=== PATIENT | male | born 1930 | race Caucasian/White ===

== ENCOUNTER 2016-10-20 10:15 | Observation (INO) | payer MEDICARE, OTHER ==
[~2016-10-20] VITALS: Ht 165.1 cm; Wt 84.4 kg
[~2016-10-20 10:15] MED LIST: ADLT ASA LOW81 MG PO; ALLEGRA-D 1212 HOUR PO; AMOXICILLIN/CL500 MG PO; ASPIRIN325 MG PO; ATENOLOL25 MG PO; AUGMENTIN500TAB PO; BABY ASPIRIN81 MG PO; BACTRIM DS1 TAB PO; CALCIUM +D PO; CARDURA1 MG PO; CEPHALEXIN500 MG OR; CETIRIZ/PSE1 TAB PO; CIPROFLOXACN500 MG PO; COLACE100 MG PO; COMBIVENT RESPIMAT IN; COZAAR50 MG PO; DEMADEX10 MG PO; DEMADEX20 MG PO; FERROUS SULF325 M1 PO; FISH OIL1000 MG PO; FLOMAX0.4 M1 PO; FLUARIX QUADRIV1 IN1 IM; FLUARIX QUADRIV1 INJ IM; FLULAVAL IM; FUROSEMIDE40 MG PO; GELATIN PO; GLYCOLAX3350 N1 PO; K-DUR/KLOR-CON20 MEQ PO; KLOR-CON M2020 MEQ PO; LEVAQUIN500 MG PO; LEVAQUIN750 MG PO; LISINOPRIL10 MG PO; LORTAB 5 OR; LOSARTAN POT50 MG PO; Levaquin PO; MEDDOSEPAK PO; METOPROL TAR25 M1 PO; MIRAPEX0.5 MG PO; MULTIVITAMIN PO; NITRO-DUR0.4 MG/HR TD; NITRO-DUR0.6 MG/HR; OMEPRAZOLE20 MG PO; OXYCO/APAP1 TA5 OR; OXYCO/APAP1 TA5 PO; PANTOPRAZOLE SO40 MG PO; PERCOCET 5/321 COMBO PO; PLAVIX75 MG PO; POT CL MICRO20 MEQ PO; PRILOSEC20 MG PO; PROTONIX40 M2 PO; ROBITUSSIN AC10 ML PO; SIMVASTATIN10 MG PO; SYMBICORT1 AE1 IN; TAM75CAP PO; TERAZOSIN5 MG PO; TESSALON PER100 MG PO; TRICOR145 MG PO; TUSSIONEX PENNKI1 ML OR; TUSSIONEX PENNKI1 ML PO; ZANTAC 150 PO; ZITHROMAX500 MG PO
[2016-10-20 10:45] VITALS: BP 122/67
[2016-10-20 16:45] VITALS: BP 129/71
[2016-10-20 19:48] LABS: URINE BILIRUBIN - DIPSTICK NEGATIVE (NEGATIVE); URINE BLOOD DIPSTICK NEGATIVE (NEGATIVE); URINE CLARITY CLEAR; URINE COLOR YELLOW; URINE GLUCOSE - DIPSTICK NEGATIVE (NEGATIVE); URINE KETONE NEGATIVE (NEGATIVE); URINE LEUK ESTERASE NEGATIVE (Negative); URINE NITRITE - DIPSTICK NEGATIVE (Negative); URINE PH 6.5 (4.5-8.0); URINE PROTEIN - DIPSTICK NEGATIVE (NEG-TRACE); URINE SPECIFIC GRAVITY 1.015; URINE UROBILINOGEN - DIPSTICK 0.2 E.U./dL (0.2)
[2016-10-20 19:49] LABS: HEMATOCRIT 24.6 % (39.0-50.0); HEMOGLOBIN 7.7 g/dl (14.0-18.0); IMMATURE GRANULOCYTES 0.2 % (0.0-1.0); MEAN CELL VOLUME 84.2 fL CALC (80.0-100.0); MEAN CORPUSCULAR HGB 26.4 pG CALC (26.0-32.0); MEAN CORPUSCULAR HGB CONC 31.3 g/L CALC (32.0-36.0); NEUT# 2.1 thou/uL (1.82-7.42); RED BLOOD COUNT 2.92 mill/uL (4.70-6.10); RED CELL DISTRI WIDTH 18.1 % (11.5-15.5)
[2016-10-20 20:14] LABS: ANION GAP 15 (6-22 (CALC)); BUN 19 mg/dL (8-23); BUN/CREATININE RATIO 16 (12-20 (CALC)); CALCIUM 9.4 mg/dL (8.4-10.2); CARBON DIOXIDE 23 mmol/l (22-30); CHLORIDE 109 mmol/l (95-108); CREATININE 1.2 mg/dL (0.7-1.3); GFR 57 ML/MIN (>=60 (CALC)); GFR FOR AFR.AMER. > 60 ML/MIN (>=60 (CALC)); GLUCOSE 137 mg/dL (82-115); SODIUM 143 mmol/l (137-146)
[2016-10-20 21:34] VITALS: BP 162/52
[2016-10-21] VITALS (9 sets, daily range): BP systolic 133–153; BP diastolic 50–71
[2016-10-21 10:04] LABS: HEMATOCRIT 32.7 % (39.0-50.0); HEMOGLOBIN 10.5 g/dl (14.0-18.0); IMMATURE GRANULOCYTES 0.6 % (0.0-1.0); MEAN CELL VOLUME 84.3 fL CALC (80.0-100.0); MEAN CORPUSCULAR HGB 27.1 pG CALC (26.0-32.0); MEAN CORPUSCULAR HGB CONC 32.1 g/L CALC (32.0-36.0); NEUT# 4.75 thou/uL (1.82-7.42); RED BLOOD COUNT 3.88 mill/uL (4.70-6.10); RED CELL DISTRI WIDTH 17.2 % (11.5-15.5)
[2016-10-21 10:42] LABS: ANION GAP 16 (6-22 (CALC)); BUN 18 mg/dL (8-23); BUN/CREATININE RATIO 16 (12-20 (CALC)); CALCIUM 9.1 mg/dL (8.4-10.2); CARBON DIOXIDE 24 mmol/l (22-30); CHLORIDE 108 mmol/l (95-108); CREATININE 1.2 mg/dL (0.7-1.3); GFR 57 ML/MIN (>=60 (CALC)); GFR FOR AFR.AMER. > 60 ML/MIN (>=60 (CALC)); GLUCOSE 150 mg/dL (82-115); POTASSIUM 4.1 mmol/l (3.5-5.1); SODIUM 144 mmol/l (137-146)
== END 2016-10-21 14:25 ==
LOC: ENPENDDIS → MS2 10:15
PROVIDERS: ADMIT Internal Medicine Geriatric Medicine; ATTEND Internal Medicine Geriatric Medicine
PROC: 30233N1 Transfusion of Nonautologous Red Blood Cells into Peripheral Vein, Percutaneous Approach (ICD-10-PCS; principal; 2016-10-21)
PROC: 30233N1 Transfusion of Nonautologous Red Blood Cells into Peripheral Vein, Percutaneous Approach (ICD-10-PCS; 2016-10-21)
DX: D50.9 Iron deficiency anemia, unspecified (principal); I10 Essential (primary) hypertension; E78.5 Hyperlipidemia, unspecified; I25.10 Atherosclerotic heart disease of native coronary artery without angina pectoris; J44.9 Chronic obstructive pulmonary disease, unspecified; Z95.5 Presence of coronary angioplasty implant and graft; Z85.038 Personal history of other malignant neoplasm of large intestine; Z90.49 Acquired absence of other specified parts of digestive tract
CPT/HCPCS: P9016

== ENCOUNTER 2016-12-03 11:39 | Inpatient (IN) | payer MEDICARE, OTHER ==
[~2016-12-03] VITALS: Ht 165.1 cm; Wt 83.4 kg
--- NOTE | 2016-12-03 11:51 | NUR ---
PT AMBLATORY TO ROOM FOR EXAM
--- NOTE | 2016-12-03 12:31 | NUR ---
INITIATED IV FLUIDS AND MED FOR NAUSEA, PT ABD SOFT AND NON DISTENDED. STATES NAUSEA STARTED THIS AM. VSS. AT BEDSIDE. SKIN PWD
--- NOTE | 2016-12-03 12:35 | NUR ---
AWAKENED PT FOR NOON MEAL. PT SITTING UP AT BEDSIDE, ALERT AND RESPONSIVE
[2016-12-03 12:36] LABS: HEMATOCRIT 34.1 % (39.0-50.0); HEMOGLOBIN 10.5 g/dl (14.0-18.0); IMMATURE GRANULOCYTES 0.2 % (0.0-1.0); MEAN CELL VOLUME 85.5 fL CALC (80.0-100.0); MEAN CORPUSCULAR HGB 26.3 pG CALC (26.0-32.0); MEAN CORPUSCULAR HGB CONC 30.8 g/L CALC (32.0-36.0); NEUT# 7.02 thou/uL (1.82-7.42); RED BLOOD COUNT 3.99 mill/uL (4.70-6.10); RED CELL DISTRI WIDTH 14.8 % (11.5-15.5)
[2016-12-03 12:37] LABS: URINE BILIRUBIN - DIPSTICK NEGATIVE (NEGATIVE); URINE BLOOD DIPSTICK NEGATIVE (NEGATIVE); URINE CLARITY CLEAR; URINE COLOR YELLOW; URINE GLUCOSE - DIPSTICK NEGATIVE (NEGATIVE); URINE KETONE NEGATIVE (NEGATIVE); URINE LEUK ESTERASE NEGATIVE (NEGATIVE); URINE NITRITE - DIPSTICK NEGATIVE (Negative); URINE PROTEIN - DIPSTICK NEGATIVE (NEG-TRACE); URINE UROBILINOGEN - DIPSTICK 0.2 E.U./dL (0.2)
[2016-12-03 12:52] LABS: ALBUMIN 4.4 g/dL (3.2-5.0); BILIRUBIN, TOTAL 0.5 mg/dL (0.0-1.4); CALCIUM 10.5 mg/dL (8.4-10.2); CREATININE 1.6 mg/dL (0.7-1.3); POTASSIUM 4.3 mmol/l (3.5-5.1); TOTAL PROTEIN 7.7 g/dL (6.3-8.2)
--- NOTE | 2016-12-03 13:30 | NUR ---
PT RESTING WITHOUT COMPLAINT AT THIS TIME. ASSISTED PT WITH REPOSITIONING. AT BEDSIDE. AWAITING DISPOSITION
--- NOTE | 2016-12-03 14:48 | NUR ---
DR MENDOZA AT BEDSIDE TO DISCUSS CLINICAL FINDINGS AND ADMISSION WITH PT AND FAMILY. AGREEABLE TO ADMISSION.
--- NOTE | 2016-12-03 15:20 | NUR ---
PT IN NO ACUTE DISTRESS. VSS. AWARE OF ADMIT AND AGREEABLE
--- NOTE | 2016-12-03 15:31 | NUR ---
ATTEMPTED TO CALL REPORT TO SOPHIA SMITH MS2, NURSE IN PT ROOM
--- NOTE | 2016-12-03 15:52 | NUR ---
CALLED REPORT TO LUIS RODRIGUEZ RN.PT TRANSPORTED TO [facility] VIA STRETCHER.
--- NOTE | 2016-12-03 16:01 | NUR ---
PT ARRIVED TO FLOOR VIA STRETCHER ACCOMPANIED BY SOPHIA STOLL. PRESENT. PT ASSISTED TO BED WITH STAFF X 1. GENERALIZED WEAKNESS NOTED. PT ORIENTED TO ROOM ADN EQUIPMENT. PLAN OF CARE DISCUSSED. REPORTING OF CONCERNS ENCOURAGED. CALL LIGHT REVIEWED AND IN REACH. PT STATES UNDERSTANDING.
[2016-12-03 17:00] VITALS: BP 183/82
--- NOTE | 2016-12-03 17:05 | NUR ---
1 BAG OF SSE ADMINISTERED. PT SITTING ON BSC NOW. AT BEDSIDE.
[2016-12-03 17:15] VITALS: BP 171/70
--- NOTE | 2016-12-03 17:55 | NUR ---
2ND SSE ADMINISTERED. PT TO BSC. LARGE BROWN/WATERY WITH SOLID FRAGMENTS STOOL OBSERVED. PT REQUESTSTO EAT DINNER BEFORE PROCEEDING WITH ENEMAS.
--- NOTE | 2016-12-03 17:56 | NUR ---
BP 183/83. DR. SILVA NOTIFIED. ORDER FOR CLONIDINE PO GIVEN AND ADMINISTERED. WILL CONTINUE TO MONITOR.
[2016-12-03 18:45] VITALS: BP 170/75
--- NOTE | 2016-12-03 18:58 | NUR ---
DR. SILVA IN TO SEE PT. NEW ORDERS BEING PLACED NOW. PT UPDATED ON NEW PLAN OF CARE. PT STATES UNDERSTANDING.
--- NOTE | 2016-12-03 19:05 | NUR ---
REPORT RECEIVED FROM MELA SMITH; PT.UPRIGHT W/OUT S/S OF DISTRESS, DENIES ANY DISCOMFORT AT THIS TIME; CALL LIGHT W/IN REACH
--- NOTE | 2016-12-03 20:16 | NUR ---
NG TUBE PLACED BY ASHLYN,DRYER AND WASHER MECHANIC ORDERED BY ; PT.TOLERATED PROCEDURE WELL AND SUCTION SET AT LIS; 800CC OUT IMMEDIATELY; PLACEMENT CONFIRMED; WILL SEND PT.DOWN FOR XRAY ORDERED FOR PLACEMENT CONFIRMATION;
[2016-12-04 00:59] VITALS: BP 103/57
[2016-12-04 04:08] VITALS: BP 127/57
--- NOTE | 2016-12-04 05:00 | NUR ---
PT.NGTUBE DRAINING LIGHT COLÓN W/SLIGHT GREEN TINGE FLUID W/SEDIMENT; 750CC EMPTIED FROM CANISTER AND NEW CANISTER PLACED; 200 CC EMPTIED FROM URINAL OF CLEAR YELLOW URINE; CALL LIGHT W/IN REACH AND PT.ENCOURAGED TO CALL; PROVIDED ICE CHIPS FOR PT.TO RELEIVE THROAT IRRITATION
[2016-12-04 05:14] LABS: HEMATOCRIT 29.1 % (39.0-50.0); HEMOGLOBIN 9.4 g/dl (14.0-18.0); IMMATURE GRANULOCYTES 0.3 % (0.0-1.0); MEAN CELL VOLUME 83.1 fL CALC (80.0-100.0); MEAN CORPUSCULAR HGB 26.9 pG CALC (26.0-32.0); MEAN CORPUSCULAR HGB CONC 32.3 g/L CALC (32.0-36.0); NEUT# 6.62 thou/uL (1.82-7.42); RED BLOOD COUNT 3.5 mill/uL (4.70-6.10); RED CELL DISTRI WIDTH 14.6 % (11.5-15.5)
[2016-12-04 05:30] LABS: ALBUMIN 3.6 g/dL (3.2-5.0); BILIRUBIN, TOTAL 0.5 mg/dL (0.0-1.4); CALCIUM 9.5 mg/dL (8.4-10.2); CREATININE 1.4 mg/dL (0.7-1.3); POTASSIUM 3.4 mmol/l (3.5-5.1); TOTAL PROTEIN 6.4 g/dL (6.3-8.2)
--- NOTE | 2016-12-04 08:00 | NUR ---
DR. SILVA IN TO SEE PT; PLAN OF CARE DISCUSSED
[2016-12-04 08:18] VITALS: BP 105/69
--- NOTE | 2016-12-04 11:27 | NUR ---
DR. WILD NOTIFIED OF CONSULT
--- NOTE | 2016-12-04 13:38 | NUR ---
NG TO LIS; PT DENIES PAIN; PT INQUIRED ABOUT NPO STATUS; INFORMED PT THAT SURGEON WILL BE IN THIS EVENING AND WILL DISCUSS POC; REINFORCE TO PT THAT WHILE NGT IS IN PLACE, NO FOOD OR DRINK AT THIS TIME; PT VERBALIZE UNDERSTANDING OF SAME; CALL CONTE WITHIN REACH; WILL CONTINUE TO MONITOR.
--- NOTE | 2016-12-04 14:30 | NUR ---
DR. WILD IN TO SEE PT
[2016-12-04 15:50] VITALS: BP 110/60
--- NOTE | 2016-12-04 17:39 | NUR ---
DR. SILVA IN TO SEE PT
[2016-12-04 19:07] VITALS: BP 125/64
--- NOTE | 2016-12-04 20:00 | NUR ---
PATIENT RESTING IN BED AT THIS TIME-AWAKE ALERT AND ORIENTEDX3. NGT TO LIWS DRAINING BROWN FLUID. IV SITE TO LEFT WRIST WITH IVF D51/2NS PATENT AND INFUSING AT 100CC/HR. NPO AT THIS TIME. PATIENT DENIES ANY PAIN AT THIS TIME. SAFETY PRECAUTIONS REINFORCED. CALL LIGHT IN REACH. WILL CONT TO MONITOR.
--- NOTE | 2016-12-05 | NUR ---
PATIENT RESTING INBED AT THIS TIME. PATIENT WITH NO COMPLAINTS AT THIS TIME. NGT TO LIWS CONT TO DRAIN BROWN FLUID. #16 ARMENIAN LARIOS CATH INSERTED ORDERED WITHOUT ANY DIFFICULTY AND DRAINING CLEAR YELLOW URINE. PATIENT LYNNE WELL. SAFETY PRECAUTIONS REINFORCED. CALL LIGHT IN REACH. WILL CONT TO MONITOR.
[2016-12-05 03:00] VITALS: BP 137/69
--- NOTE | 2016-12-05 04:12 | NUR ---
PATIENT RESTING IN BED AT THIS TIME-APPEARS SLEEPING WITH NGT TO LIWS-CONT TO DRAIN BROWN FLUID. LARIOS PATENT AND DRAINING YELLOW URINE. CALL LIGHT IN REACH. WILL CONT TO MONITOR.
--- NOTE | 2016-12-05 06:12 | NUR ---
PATIENT UP TO BSC-PASSING FLATUS BUT NO STOOL. SITTING UP ON THE SIDE OF THE BED. CALL LIGHT IN REACH. WILL CONT TO MONITOR.
[2016-12-05 06:13] LABS: HEMATOCRIT 34.6 % (39.0-50.0); HEMOGLOBIN 10.8 g/dl (14.0-18.0); IMMATURE GRANULOCYTES 0.4 % (0.0-1.0); MEAN CORPUSCULAR HGB 26.2 pG CALC (26.0-32.0); MEAN CORPUSCULAR HGB CONC 31.2 g/L CALC (32.0-36.0); NEUT# 8.14 thou/uL (1.82-7.42); RED BLOOD COUNT 4.12 mill/uL (4.70-6.10); RED CELL DISTRI WIDTH 14.8 % (11.5-15.5)
[2016-12-05 06:38] LABS: ALBUMIN 4.2 g/dL (3.2-5.0); BILIRUBIN, TOTAL 0.6 mg/dL (0.0-1.4); CALCIUM 10.1 mg/dL (8.4-10.2); CREATININE 1.4 mg/dL (0.7-1.3); POTASSIUM 3.2 mmol/l (3.5-5.1); TOTAL PROTEIN 7.5 g/dL (6.3-8.2)
--- NOTE | 2016-12-05 07:33 | NUR ---
PATIENT RESTING IN BED WITH NO COMPLAINTS AT THIS TIME. NGT CONT WITH BROWN DRAINAGE. LARIOS CATH INSERTED ORDERED WITHOUT ANY DIFFICULTY-#16FREANCH WITH CLEAR YELLOW URINE RETURNED. CALL LIGHT IN REACH. PATIENT DENIES ANY PAIN AT THIS TIME. WILL CONT TO MONITOR.
--- NOTE | 2016-12-05 08:18 | NUR ---
REPORT RECEIVED FROM MELA; PT.AWAKE W/FAMILY AT BS; PT.DENIES NEEDS AT THIS TIME; PT.MENTIONED A CONCERN ABOUT DYE TESTING THAT IS PLANNED FOR TODAY, STATING THAT HIS KIDNEY TOLD HIM TO "STAY AWAY FROM" DYE'S FOR TESTING DUE TO HIS STENT; CALL LIGHT W/IN REACH
--- NOTE | 2016-12-05 08:30 | NUR ---
IN TO SEE PT., PT.DISCUSSED CONTRAST DYE CONCERNS W/ AND THEY CONFIRMED SMALL BOWEL SERIES TO BE PERFORMED TODAY;
--- NOTE | 2016-12-05 10:43 | NUR ---
NEW NG TUBE CANISTER TO REPLACE OLD CANISTER; 375 CC NEW OUTPUT OF DARK GREEN LIQUID RECORDED
--- NOTE | 2016-12-05 15:35 | NUR ---
SPOKE W/ REGARDING NGTUBE REMOVAL, HE WANTS ME TO LEAVE THE TUBE IN PLACE UNTIL AND CALL HIM W/RESULTS OF ABD.XRAY SERIES FIRST WHEN THEY COME IN;
--- NOTE | 2016-12-05 16:45 | NUR ---
CALLED W/XRAY RESULTS SHOWING NO SB BLOCKAGE; SAID TO DC NGTUBE BECAUSE PT.HAS BEEN CLAMPED FOR SEVERAL HOURS NOT WHILE HAVING PROOCEDURE TO START PT.ON FULL LIQUIDS FIRST, TOLERATED SNACK OVERNIGHT AND FULL BREAKFAST W/POSSIBLE DC IN AM
[2016-12-05 17:00] VITALS: BP 131/72
--- NOTE | 2016-12-05 17:45 | NUR ---
XRAY SMALL BOWEL SERIES IS NEGATIVE, PT.IS IN RESTROOM 5X LOOSE BOWEL MOVEMENTS; IS IN PT.ROOM AND ORDERED: DC NGTUBE, DC LARIOS CATHETER, INTRODUCTION OF FULL LIQUID DIET, SNACK OVERNIGHT IF TOLERATING AND BREAKFAST IN THE AM W/PROBABLE DC IN AM; NG TUBE WAS REMOVED AND LARIOS REMOVED, PT.TOLERATED BOTH WELL;
--- NOTE | 2016-12-05 20:00 | NUR ---
PATIENT RESTING IN BED AND APPEARS SLEEPING AT THIS TIME WITH EYES CLOSED. CALL LIGHT IN REACH. WILL CONT TO MONITOR.
[2016-12-05 20:15] VITALS: BP 118/67
--- NOTE | 2016-12-05 22:00 | NUR ---
IV SITE TO LEFT WRIST IS LEAKING AND WAS D/C. NEW IV SITE STARTED TO LEFT FOREARM-#22 GAUGE BY JYOTI HARDING. IVF D51/2NS PATENT AND INFUSING AT 100CC/HR. PATIENT IS HAVING LIQUID YELLOW STOOLS. RESTING IN BED AT THIS TIME. WILL CONT TO MONITOR.
--- NOTE | 2016-12-06 | NUR ---
PATIENT APPEARS SLEEPING AT THIS TIME WITH EYES CLOSED. CALL LIGHT IN REACH. WILL CONT TO MONITOR.
--- NOTE | 2016-12-06 04:10 | NUR ---
PATIENT CONT TO SLEEP WITH EYES CLOSED. IVF PATENT AT 100CC/HR VIA LEFT FOREARM SITE. CALL LIGHT IN REACH. WILL CONT TO MONITOR.
[2016-12-06 04:50] VITALS: BP 112/51
[2016-12-06 05:08] LABS: HEMATOCRIT 32.8 % (39.0-50.0); HEMOGLOBIN 10.2 g/dl (14.0-18.0); IMMATURE GRANULOCYTES 0.5 % (0.0-1.0); MEAN CORPUSCULAR HGB 26.4 pG CALC (26.0-32.0); MEAN CORPUSCULAR HGB CONC 31.1 g/L CALC (32.0-36.0); NEUT# 8.63 thou/uL (1.82-7.42); RED BLOOD COUNT 3.86 mill/uL (4.70-6.10); RED CELL DISTRI WIDTH 15.1 % (11.5-15.5)
[2016-12-06 05:35] LABS: ALBUMIN 3.9 g/dL (3.2-5.0); BILIRUBIN, TOTAL 0.6 mg/dL (0.0-1.4); CALCIUM 9.7 mg/dL (8.4-10.2); CREATININE 2.3 mg/dL (0.7-1.3); POTASSIUM 2.7 mmol/l (3.5-5.1); TOTAL PROTEIN 7.1 g/dL (6.3-8.2)
--- NOTE | 2016-12-06 07:40 | NUR ---
BEDSIDE REPORT RECEIVED FROM SOPHIA ECHOLS. PT SITTING UPRIGHT IN BED. DENIES PAIN. REPORTING OF CONCERNS ENCOURAGED. PLAN OF CARE DISCUSSED. CALL LIGHT REVIEWED AND IN REACH. PT STATES UNDERSTANDING.
[2016-12-06 09:00] VITALS: BP 117/67
--- NOTE | 2016-12-06 13:00 | NUR ---
PT SITTING IN CHAIR AT BEDSIDE. PRESENT. DENIES PAIN. TOLERATING FULL LIQUID DIET. WILL CONTINUE TO MONITOR.
[2016-12-06 17:59] LABS: CALCIUM 8.3 mg/dL (8.4-10.2); CREATININE 2.1 mg/dL (0.7-1.3); POTASSIUM 3.3 mmol/l (3.5-5.1)
--- NOTE | 2016-12-06 18:11 | NUR ---
DR. SILVA IN TO SEE PT. PLAN OF CARE UPDATED.
--- NOTE | 2016-12-06 20:00 | NUR ---
OOB TO BATHROOM WITH STEADY GAIT, NEEDS ASSISTANCE WITH IV POLE. VOIDING CLEAR YELLOW URINE, NO BM AT THIS TIME. DENIES PAIN OR DISCOMFORT. ENCOURAGED TO USE CALL LIGHT FOR ASSISTANCE, WILL CONTINUE TO MONITOR.
[2016-12-06 20:15] VITALS: BP 94/51
--- NOTE | 2016-12-07 | NUR ---
RESTING IN BED WITH EYES CLOSED, RESPIRATIONS EVEN AND UNLABORED. CALL LIGHT IN REACH.
--- NOTE | 2016-12-07 00:44 | NUR ---
PT IN SEMIFOWLERS A/O X3, RESPIRATIONS EVEN AND UNLABORED ON RA. CALL LIGHT IN REACH.
[2016-12-07 03:59] VITALS: BP 109/65
[2016-12-07 05:58] LABS: HEMATOCRIT 29.4 % (39.0-50.0); HEMOGLOBIN 9.4 g/dl (14.0-18.0); IMMATURE GRANULOCYTES 0.4 % (0.0-1.0); MEAN CELL VOLUME 82.6 fL CALC (80.0-100.0); MEAN CORPUSCULAR HGB 26.4 pG CALC (26.0-32.0); NEUT# 6.51 thou/uL (1.82-7.42); RED BLOOD COUNT 3.56 mill/uL (4.70-6.10); RED CELL DISTRI WIDTH 14.3 % (11.5-15.5)
[2016-12-07 06:16] LABS: ALBUMIN 3.4 g/dL (3.2-5.0); BILIRUBIN, TOTAL 0.5 mg/dL (0.0-1.4); CALCIUM 8.6 mg/dL (8.4-10.2); CREATININE 1.6 mg/dL (0.7-1.3); POTASSIUM 3.2 mmol/l (3.5-5.1); TOTAL PROTEIN 6.1 g/dL (6.3-8.2)
[2016-12-07 07:43] VITALS: BP 113/60
[2016-12-07 09:13] VITALS: BP 113/60
--- NOTE | 2016-12-07 10:50 | NUR ---
Discharge instructions given. Patient verbalizes understanding of same. Discharged in stable condition via Wheelchair to Home with spouse. All belongings sent with pt.
== END 2016-12-07 10:51 | disposition home or self-care (01) | DRG 389 ==
LOC: ENPENDDIS → ED 11:39 → ED-I 14:39 → ED 15:13 → MS2 15:14
PROVIDERS: Emergency Medicine; ADMIT Internal Medicine Geriatric Medicine; ATTEND Internal Medicine Geriatric Medicine
PROC: 0D9670Z Drainage of Stomach with Drainage Device, Via Natural or Artificial Opening (ICD-10-PCS; principal; 2016-12-03)
PROC: 0T9B70Z Drainage of Bladder with Drainage Device, Via Natural or Artificial Opening (ICD-10-PCS; 2016-12-05)
DX: K56.60 Unspecified intestinal obstruction (principal); N17.9 Acute kidney failure, unspecified; I95.9 Hypotension, unspecified; E86.9 Volume depletion, unspecified; I70.1 Atherosclerosis of renal artery; N18.3 Chronic kidney disease, stage 3 (moderate); R00.1 Bradycardia, unspecified; I12.9 Hypertensive chronic kidney disease with stage 1 through stage 4 chronic kidney disease, or unspecified chronic kidney disease; D63.1 Anemia in chronic kidney disease; I25.10 Atherosclerotic heart disease of native coronary artery without angina pectoris; Z85.038 Personal history of other malignant neoplasm of large intestine; Z87.891 Personal history of nicotine dependence; Z90.49 Acquired absence of other specified parts of digestive tract; Z95.5 Presence of coronary angioplasty implant and graft
CPT/HCPCS: G0378; Q9967

== ENCOUNTER 2016-12-21 12:44 | Inpatient (IN) | payer MEDICARE, OTHER ==
[~2016-12-21] VITALS: Ht 165.1 cm; Wt 79.8 kg
[2016-12-21 13:45] LABS: HEMATOCRIT 29.1 % (39.0-50.0); IMMATURE GRANULOCYTES 0.3 % (0.0-1.0); MEAN CELL VOLUME 81.3 fL CALC (80.0-100.0); MEAN CORPUSCULAR HGB 25.1 pG CALC (26.0-32.0); MEAN CORPUSCULAR HGB CONC 30.9 g/L CALC (32.0-36.0); NEUT# 5.7 thou/uL (1.82-7.42); RED BLOOD COUNT 3.58 mill/uL (4.70-6.10); RED CELL DISTRI WIDTH 14.6 % (11.5-15.5)
[2016-12-21 13:58] LABS: ALBUMIN 3.8 g/dL (3.2-5.0); ALKALINE PHOSPHATASE 45 u/l (38-126); AMYLASE 36 u/l (30-110); ANION GAP 13 (6-22 (CALC)); BILIRUBIN, TOTAL 0.5 mg/dL (0.0-1.4); BUN 16 mg/dL (8-23); BUN/CREATININE RATIO 13 (12-20 (CALC)); CALCIUM 10.3 mg/dL (8.4-10.2); CARBON DIOXIDE 26 mmol/l (22-30); CHLORIDE 106 mmol/l (95-108); CREATININE 1.3 mg/dL (0.7-1.3); GFR 52 ML/MIN (>=60 (CALC)); GFR FOR AFR.AMER. > 60 ML/MIN (>=60 (CALC)); GLUCOSE 114 mg/dL (82-115); LIPASE 49 u/l (23-300); SGOT/AST 20 u/l (19-48); SGPT/ALT 26 u/l (11-66); SODIUM 141 mmol/l (137-146); TOTAL PROTEIN 6.6 g/dL (6.3-8.2)
[2016-12-21 18:15] VITALS: BP 136/57
[2016-12-22 04:30] VITALS: BP 137/63
[2016-12-22 05:12] LABS: URINE BILIRUBIN - DIPSTICK NEGATIVE (NEGATIVE); URINE BLOOD DIPSTICK NEGATIVE (NEGATIVE); URINE CLARITY CLEAR; URINE COLOR YELLOW; URINE GLUCOSE - DIPSTICK NEGATIVE (NEGATIVE); URINE KETONE NEGATIVE (NEGATIVE); URINE LEUK ESTERASE NEGATIVE (NEGATIVE); URINE NITRITE - DIPSTICK NEGATIVE (Negative); URINE PROTEIN - DIPSTICK NEGATIVE (NEG-TRACE); URINE UROBILINOGEN - DIPSTICK 0.2 E.U./dL (0.2)
[2016-12-22 05:13] LABS: HEMATOCRIT 26.7 % (39.0-50.0); HEMOGLOBIN 8.2 g/dl (14.0-18.0); IMMATURE GRANULOCYTES 0.4 % (0.0-1.0); MEAN CELL VOLUME 81.9 fL CALC (80.0-100.0); MEAN CORPUSCULAR HGB 25.2 pG CALC (26.0-32.0); MEAN CORPUSCULAR HGB CONC 30.7 g/L CALC (32.0-36.0); NEUT# 3.53 thou/uL (1.82-7.42); RED BLOOD COUNT 3.26 mill/uL (4.70-6.10); RED CELL DISTRI WIDTH 14.4 % (11.5-15.5)
[2016-12-22 05:38] LABS: ANION GAP 12 (6-22 (CALC)); BUN 17 mg/dL (8-23); BUN/CREATININE RATIO 14 (12-20 (CALC)); CARBON DIOXIDE 23 mmol/l (22-30); CHLORIDE 110 mmol/l (95-108); CREATININE 1.2 mg/dL (0.7-1.3); GFR 57 ML/MIN (>=60 (CALC)); GFR FOR AFR.AMER. > 60 ML/MIN (>=60 (CALC)); GLUCOSE 75 mg/dL (82-115); POTASSIUM 3.6 mmol/l (3.5-5.1); SODIUM 142 mmol/l (137-146)
[2016-12-22 08:03] VITALS: BP 155/63
[2016-12-22 08:57] VITALS: BP 141/50
[2016-12-22] MEDS ORDERED: GLYCOLAX3350 N1 PO (16:23)
[2016-12-22] MEDS ORDERED: COLACE100 MG PO (16:23)
[2016-12-22 16:29] VITALS: BP 141/74
== END 2016-12-22 17:00 | disposition home or self-care (01) | DRG 390 ==
LOC: ENPENDDIS → ED 12:44 → ED-I 15:13 → ED 16:46 → MS2 16:47
PROVIDERS: Emergency Medicine; ADMIT Internal Medicine; ATTEND Internal Medicine
PROC: 0D9670Z Drainage of Stomach with Drainage Device, Via Natural or Artificial Opening (ICD-10-PCS; principal; 2016-12-21)
DX: K56.60 Unspecified intestinal obstruction (principal); I70.1 Atherosclerosis of renal artery; I10 Essential (primary) hypertension; I25.10 Atherosclerotic heart disease of native coronary artery without angina pectoris; D50.9 Iron deficiency anemia, unspecified; K59.09 Other constipation; Z87.891 Personal history of nicotine dependence; Z95.5 Presence of coronary angioplasty implant and graft; Z85.038 Personal history of other malignant neoplasm of large intestine; Z90.49 Acquired absence of other specified parts of digestive tract

== ENCOUNTER 2017-02-22 08:17 | Emergency (ER) | payer MEDICARE, OTHER ==
[~2017-02-22] VITALS: Ht 165.1 cm; Wt 70.0 kg
[2017-02-22] MEDS ORDERED: CALCIUM + D PO (08:23)
[2017-02-22 09:33] VITALS: BP 158/70
== END 2017-02-22 09:50 | disposition home or self-care (01) ==
LOC: ED 08:17
PROC: 0HQ1XZZ Repair Face Skin, External Approach (ICD-10-PCS; principal; 2017-02-22)
DX: S09.90XA Unspecified injury of head, initial encounter (principal); S01.81XA Laceration without foreign body of other part of head, initial encounter; S61.412A Laceration without foreign body of left hand, initial encounter; W01.198A Fall on same level from slipping, tripping and stumbling with subsequent striking against other object, initial encounter; Y92.007 Garden or yard of unspecified non-institutional (private) residence as the place of occurrence of the external cause

== ENCOUNTER 2018-03-28 10:49 | Emergency (ER) | payer MEDICARE, OTHER ==
[~2018-03-28] VITALS: Ht 165.1 cm; Wt 65.4 kg
[~2018-03-28 10:49] MED LIST changes: +CALCIUM + D PO
[2018-03-28] MEDS ORDERED: XELODA500 MG PO (11:17)
[2018-03-28] MEDS ORDERED: AVASTIN100 MG/4 M PO (11:19)
[2018-03-28 11:24] LABS: HEMATOCRIT 40.9 % (39.0-50.0); HEMOGLOBIN 14.3 g/dl (14.0-18.0); IMMATURE GRANULOCYTES 0.3 % (0.0-5.0); MEAN CELL VOLUME 98.3 fL CALC (80.0-100.0); MEAN CORPUSCULAR HGB 34.4 pG CALC (26.0-32.0); NEUT# 4.54 thou/uL (1.82-7.42); RED BLOOD COUNT 4.16 mill/uL (4.70-6.10); RED CELL DISTRI WIDTH 17.6 % (11.5-15.5)
[2018-03-28 11:33] LABS: ALBUMIN 4.5 g/dL (3.2-5.0); ALKALINE PHOSPHATASE 53 u/l (38-126); BILIRUBIN, TOTAL 0.9 mg/dL (0.0-1.4); BUN 23 mg/dL (8-23); BUN/CREATININE RATIO 23 (12-20 (CALC)); CARBON DIOXIDE 20 mmol/l (22-30); CHLORIDE 107 mmol/l (95-108); GFR > 60 ML/MIN (>=60 (CALC)); GFR FOR AFR.AMER. > 60 ML/MIN (>=60 (CALC)); SGPT/ALT 29 u/l (11-66); SODIUM 140 mmol/l (137-146); TOTAL PROTEIN 7.7 g/dL (6.3-8.2)
[2018-03-28 11:35] LABS: ANION GAP 17 (6-22 (CALC)); SGOT/AST 68 u/l (19-48)
[2018-03-28 11:44] LABS: MYOGLOBIN 200 ng/mL (0 - 121)
[2018-03-28 12:14] LABS: CPK 214 u/l (52-200)
[2018-03-28 13:41] VITALS: BP 157/84
== END 2018-03-28 13:41 | disposition short-term general hospital (02) ==
LOC: ED 10:49
PROVIDERS: Emergency Medicine
DX: R07.9 Chest pain, unspecified (principal); R74.8 Abnormal levels of other serum enzymes; I10 Essential (primary) hypertension; I25.10 Atherosclerotic heart disease of native coronary artery without angina pectoris; Z85.038 Personal history of other malignant neoplasm of large intestine; Z86.79 Personal history of other diseases of the circulatory system; Z95.5 Presence of coronary angioplasty implant and graft

== ENCOUNTER 2018-09-10 08:27 | Observation (INO) | payer MEDICARE, OTHER ==
[~2018-09-10] VITALS: Ht 165.1 cm; Wt 65.3 kg
[~2018-09-10 08:27] MED LIST changes: +AVASTIN100 MG/4 M PO; +XELODA500 MG PO
--- NOTE | 2018-09-10 08:27 | NUR ---
PT TO ROOM FOR BEDSIDE TRIAGE VIA WC. 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 ARM DRESSED BY
--- NOTE | 2018-09-10 08:40 | NUR ---
MD AT BEDSIDE AND SKIN SHEARING TO RT UPPER ARM 10X4CM . CLEANSED AND DRESSED ORDERED. NO ACTIVE BLEEDING.
[2018-09-10 09:25] LABS: HEMATOCRIT 47.6 % (39.0-50.0); HEMOGLOBIN 15.6 g/dl (14.0-18.0); IMMATURE GRANULOCYTES 0.3 % (0.0-5.0); MEAN CELL VOLUME 92.6 fL CALC (80.0-100.0); MEAN CORPUSCULAR HGB 30.4 pG CALC (26.0-32.0); MEAN CORPUSCULAR HGB CONC 32.8 g/L CALC (32.0-36.0); NEUT# 4.51 thou/uL (1.82-7.42); RED BLOOD COUNT 5.14 mill/uL (4.70-6.10); RED CELL DISTRI WIDTH 18.3 % (11.5-15.5)
--- NOTE | 2018-09-10 09:35 | NUR ---
PT STATES HE FEELS DIZZY WHEN HE MOVES HIS HEAD FROM SIDE TO SIDE. VSS. DENIES NAUSEA OR VISUAL DISTURBANCE
[2018-09-10] MEDS ORDERED: XELODA500 MG PO (09:39)
[2018-09-10] MEDS ORDERED: STOOL SOFTENER100 MG PO (09:40)
[2018-09-10] MEDS ORDERED: MIRALAX3350 N1 PO (09:41)
[2018-09-10 09:49] LABS: ANION GAP 13 (6-22 (CALC)); BUN 18 mg/dL (8-23); BUN/CREATININE RATIO 23 (12-20 (CALC)); CARBON DIOXIDE 27 mmol/l (22-30); CHLORIDE 106 mmol/l (95-108); CREATININE 0.8 mg/dL (0.7-1.3); GFR > 60 ML/MIN (>=60 (CALC)); GFR FOR AFR.AMER. > 60 ML/MIN (>=60 (CALC)); POTASSIUM 4.3 mmol/l (3.5-5.1); SODIUM 142 mmol/l (137-146)
--- NOTE | 2018-09-10 10:24 | NUR ---
PT RESTING COMFORTABLY AT THIS TIME. VSUmm. DISCUSSING ADMIT WITH PT AND .
--- NOTE | 2018-09-10 10:45 | NUR ---
CALLED REPORT TO SOPHIA SMITH
--- NOTE | 2018-09-10 10:47 | NUR ---
CALLED DR SILVA FOR ADMISSION ORDERS
--- NOTE | 2018-09-10 11:05 | NUR ---
PT TRANSPORTED TO ID VIA STRETCHER ON CONTINUOUS PROFESSOR OF BUSINESS ADMINISTRATION IN STABLE CONDITION
--- NOTE | 2018-09-10 11:24 | NUR ---
PT ARRIVED TO FLOOR VIA STRETCHER ACCOMPANIED BY SOPHIA STOLL. PT TRANSFERED TO BED WITH ASSISTANCE. REPORTS DIZZINESS WITH ANY POSITION CHANGE AND/OR TURNING OF HEAD. FALL PRECAUTIONS REINFORCED. CALL LIGHT REVIEWED AND IN REACH. PT INSTRUCTED TO CALL FOR ASSIST BEFORE EXITING BED. PT ORIENTED TO ROOM AND EQUIPMENT. PLAN OF CARE DISCUSSED. PT STATES UNDERSTANDING. DRSG TO RIGHT UPPER ARM SKIN TEAR APPLIED IN ED CDI.
[2018-09-10 11:41] VITALS: BP 154/83
[2018-09-10 15:29] VITALS: BP 117/67
--- NOTE | 2018-09-10 17:54 | NUR ---
DR. SILVA IN TO SEE PT. PLAN OF CARE UPDATED.
--- NOTE | 2018-09-10 19:05 | NUR ---
BEDSIDE REPORT RECEIVED. PT STITTING UP IN BED WITH AT BEDSIDE; ALERT AND ORIENTED. DENIES PAIN. RESPIRATIONS EVEN AND UNLABORED. REPORTS DIZZINESS UPON POSITION CHANGES AND TURNING HEAD. PLAN OF CARE REVIEWED. PT ENCOURAGED TO VERBALIZE CONCERNS. STATES UNDERSTANDING. SAFETY MEASURES IN PLACE. CALL LIGHT WITHIN REACH.
[2018-09-10 19:30] VITALS: BP 112/65
--- NOTE | 2018-09-10 23:48 | NUR ---
TELE MONITOR NOTIFED NURSE OF 2 SUSTAINED RUNS OF VTACH OF 7-10 BEATS; PT ASYMPTOMATIC FOR BOTH EPISODES. CURRENTLY RESTING IN BED WITH EYES CLOSED AND NO SIGNS OF DISTRESS. RESPIRATIONS EVEN AND UNLABORED ON ROOM AIR. IV FLUIDS INFUSING WITHOUT DIFFICULTY AND IV SITE APPEARS HEALTHY. PT AMBULATED TO BATHROOM WITH STEADY GAIT; STAND BY ASSIST R/T SYNCOPE DX. SAFETY MEASURES IN PLACE. CALL LIGHT WITHIN REACH.
[2018-09-11 00:28] VITALS: BP 123/69
[2018-09-11 03:35] VITALS: BP 134/79
--- NOTE | 2018-09-11 04:56 | NUR ---
PT AWAKENS SPONTANEOUSLY FOR LABS AND VS. NO ACUTE CHANGES IN CONDITION THROUGHOUT THE NIGHT.
[2018-09-11 06:13] LABS: IMMATURE GRANULOCYTES 0.3 % (0.0-5.0); MEAN CORPUSCULAR HGB 30.5 pG CALC (26.0-32.0); MEAN CORPUSCULAR HGB CONC 32.8 g/L CALC (32.0-36.0); NEUT# 3.99 thou/uL (1.82-7.42); RED BLOOD COUNT 4.4 mill/uL (4.70-6.10); RED CELL DISTRI WIDTH 17.4 % (11.5-15.5)
[2018-09-11 06:24] LABS: HEMATOCRIT 40.9 % (39.0-50.0); HEMOGLOBIN 13.4 g/dl (14.0-18.0)
[2018-09-11 06:33] LABS: ALBUMIN 3.4 g/dL (3.2-5.0); ANION GAP 12 (6-22 (CALC)); BILIRUBIN, TOTAL 0.8 mg/dL (0.0-1.4); BUN 15 mg/dL (8-23); BUN/CREATININE RATIO 21 (12-20 (CALC)); CARBON DIOXIDE 24 mmol/l (22-30); CHLORIDE 108 mmol/l (95-108); CREATININE 0.7 mg/dL (0.7-1.3); GFR > 60 ML/MIN (>=60 (CALC)); GFR FOR AFR.AMER. > 60 ML/MIN (>=60 (CALC)); POTASSIUM 3.8 mmol/l (3.5-5.1); SGOT/AST 27 u/l (19-48); SODIUM 139 mmol/l (137-146)
[2018-09-11 06:44] LABS: ALKALINE PHOSPHATASE 66 u/l (38-126)
[2018-09-11 07:37] VITALS: BP 135/58
--- NOTE | 2018-09-11 08:20 | NUR ---
ASSESSMENT IS COMPLTED: IV SITE IS FREE FROM REDNESS OR EDEMA. HR IS REG,PULSES ARE STRONG X4, ABD IS SOFT WITH ACTIVE BS. BREATH SOUNDS ARE CLEAR,BILATERALLY. DRESSING ON R UPPER ARM HAS SOME DRAINAGE NOTED. DRESSING HAS BEEN CHANGED WILL CHANGE AGAIN. CONTINUE TO OBSERVE AND MONITOR
--- NOTE | 2018-09-11 09:25 | NUR ---
PT DRESSING TO JOCELYNE REMOVED. CIRCULAR SKIN TEAR VISIBLE. MODERATE AMOUNT OF BLOODY DRAINAGE NOTED. CLEANED W/ SALINE. VASELINE GUAZE, ABD PAD, AND KERLIX APPLIED. WILL CONTINUE TO MONITOR.
[2018-09-11 09:42] VITALS: BP 135/58
--- NOTE | 2018-09-11 10:34 | NUR ---
PT RECEIVED A DISCHARGE INSTRUCTIONS IV SITE DISCONTINUED CATHETER INTACT. FAMILY IN THE ROOM. CONTINUE TO OBSERVE AND MONITOR.
--- NOTE | 2018-09-11 10:54 | NUR ---
PT TRANSPORTED TO CAR WITH STAFF. NO DISTRESS NOTED.
== END 2018-09-11 10:42 | disposition home or self-care (01) ==
LOC: ED 08:27 → ED-I 09:47 → ED 10:19 → MS2 10:20
PROVIDERS: Family Medicine; ADMIT Internal Medicine Geriatric Medicine; ATTEND Internal Medicine Geriatric Medicine
DX: G45.0 Vertebro-basilar artery syndrome (principal); S51.011A Laceration without foreign body of right elbow, initial encounter; I13.0 Hypertensive heart and chronic kidney disease with heart failure and stage 1 through stage 4 chronic kidney disease, or unspecified chronic kidney disease; I25.10 Atherosclerotic heart disease of native coronary artery without angina pectoris; N18.9 Chronic kidney disease, unspecified; I50.9 Heart failure, unspecified; D63.1 Anemia in chronic kidney disease; F41.1 Generalized anxiety disorder; E78.5 Hyperlipidemia, unspecified; W18.39XA Other fall on same level, initial encounter; Y92.009 Unspecified place in unspecified non-institutional (private) residence as the place of occurrence of the external cause; Z85.038 Personal history of other malignant neoplasm of large intestine; Z92.21 Personal history of antineoplastic chemotherapy; Z90.49 Acquired absence of other specified parts of digestive tract; Z86.73 Personal history of transient ischemic attack (TIA), and cerebral infarction without residual deficits; Z95.5 Presence of coronary angioplasty implant and graft; R55 Syncope and collapse; R42 Dizziness and giddiness; R94.31 Abnormal electrocardiogram [ECG] [EKG]

== ENCOUNTER → 2018-09-25 | Outpatient (REF) | payer MEDICARE, OTHER ==
[~2018-09-25] MED LIST changes: +MIRALAX3350 N1 PO; +STOOL SOFTENER100 MG PO
== END | disposition home or self-care (01) ==
LOC: DI 14:47
PROVIDERS: ATTEND Internal Medicine Geriatric Medicine
DX: M79.601 Pain in right arm (principal)

== ENCOUNTER → 2018-10-01 | Outpatient (REF) | payer MEDICARE, OTHER ==
[2018-10-01 07:48] LABS: HEMATOCRIT 45.4 % (39.0-50.0); HEMOGLOBIN 14.7 g/dl (14.0-18.0); IMMATURE GRANULOCYTES 0.1 % (0.0-5.0); MEAN CELL VOLUME 90.3 fL CALC (80.0-100.0); MEAN CORPUSCULAR HGB 29.2 pG CALC (26.0-32.0); MEAN CORPUSCULAR HGB CONC 32.4 g/L CALC (32.0-36.0); NEUT# 4.69 thou/uL (1.82-7.42); RED BLOOD COUNT 5.03 mill/uL (4.70-6.10)
== END | disposition home or self-care (01) ==
LOC: LAB 06:56
DX: C18.9 Malignant neoplasm of colon, unspecified (principal); N18.3 Chronic kidney disease, stage 3 (moderate); D50.9 Iron deficiency anemia, unspecified